=== PATIENT | female | born 1955 | race Hispanic/Latino ===

== ENCOUNTER 2020-10-06 18:47 | Inpatient (IN) | payer OTHER, SELFPAY ==
[~2020-10-06 18:47] MED LIST: Iopamidol-370 76% 500 ML 1 ML ONE
[2020-10-06] MEDS ORDERED: Ketorolac Tromethamine 30 MG/ML VIAL ONE (19:24)
[2020-10-06 20:21] LABS: Hemoglobin 12.8 g/dL (12.0-16.0); Mean Corpuscular HGB CONC 35.9 g/dL (32.0-36.0); Mean Corpuscular Hemoglobin 31.1 pg (27.0-31.0); Mean Corpuscular Volume 86.6 fL (78.0-98.0); Mean Platelet Volume 8.3 fL (7.4-10.4); Platelet Count 141 thou/uL (130-400); RBC Distribution Width 11.6 % (11.5-14.5); White Blood Cell (WBC) Count 2.4 thou/uL (4.8-10.8)
[2020-10-06 20:35] LABS: ALT (SGPT) 35 U/L (8-55); AST (SGOT) 45 U/L (5-34); Albumin 3.9 g/dL (3.4-4.8); Alkaline Phosphatase 116 U/L (40-110); Anion Gap 13 mmol/L (10-20); BUN (Urea Nitrogen) 8 mg/dL (9.8-20.1); Bilirubin, Total 0.3 mg/dL (0.2-1.2); Calc. Creatinine Clearance 0 mL/min (70-130); Calcium 8.6 mg/dL (7.8-10.44); Carbon Dioxide 24 mmol/L (23-31); Chloride 96 mmol/L (98-107); Globulin 3.5 g/dL (2.4-3.5); Glucose 152 mg/dL (80-115); Potassium 3.9 mmol/L (3.5-5.1); Protein, Total 7.4 g/dL (5.8-8.1); Sodium 129 mmol/L (136-145)
[2020-10-06 20:39] LABS: Band 6 % (5-11); Eosinophils 1 % (0-10); Lymphocytes 20 % (21-51); MDiff Complete? YES; Monocytes 6 % (0-10); Neutrophil 67 % (42-75); Platelet Morphology Comment Appears Adequate
[2020-10-06] MEDS ORDERED: Dexamethasone 10 MG/ML VIAL ONE (23:56)
[2020-10-07] MEDS ORDERED: Ondansetron PF 4 MG/2 ML Vial IVP PRN (01:45)
[2020-10-07] MEDS ORDERED: Ondansetron ODT 4 MG TAB SL PRN (01:45)
[2020-10-07] MEDS ORDERED: Sodium Chloride 0.9% (PF) 10 ML VIAL FS PRN (02:15)
[2020-10-07 06:16] LABS: #Lymphocytes 0.5 thou/uL (1.20-3.40); #Monocytes 0.1 thou/uL (0.11-0.59); #Neutrophils 1.2 thou/uL (1.40-6.50); %Eosinophils 0.2 % (0.0-10.0); %Lymphocytes 28.7 % (21.0-51.0); %Monocytes 4.5 % (0.0-10.0); %Neutrophils 66.5 % (42.0-75.0); Hemoglobin 12.9 g/dL (12.0-16.0); Mean Corpuscular HGB CONC 34.9 g/dL (32.0-36.0); Mean Corpuscular Hemoglobin 30.5 pg (27.0-31.0); Mean Corpuscular Volume 87.4 fL (78.0-98.0); Mean Platelet Volume 8.1 fL (7.4-10.4); Platelet Count 142 thou/uL (130-400); RBC Distribution Width 11.8 % (11.5-14.5); Red Blood Cell (RBC) Count 4.24 mill/uL (4.20-5.40); White Blood Cell (WBC) Count 1.8 thou/uL (4.8-10.8)
[2020-10-07 06:38] LABS: Anion Gap 11 mmol/L (10-20); BUN (Urea Nitrogen) 7 mg/dL (9.8-20.1); Calc. Creatinine Clearance 126 mL/min (70-130); Carbon Dioxide 26 mmol/L (23-31); Chloride 103 mmol/L (98-107); Glucose 191 mg/dL (80-115); Potassium 4.5 mmol/L (3.5-5.1); Sodium 135 mmol/L (136-145)
[2020-10-07] MEDS: Dexamethasone 4 mg/ml Vial SLOW IVP SCH (08:31)
[2020-10-07] MEDS: Zinc Sulfate 220 MG CAP PO SCH (08:32)
[2020-10-07] MEDS: Pantoprazole 40 MG VIAL IVP SCH (08:32)
[2020-10-07] MEDS: Ascorbic Acid 500 mg Chewable Tablet PO SCH (08:32)
[2020-10-07] MEDS: Cholecalciferol (Vitamin D3) 400 UNITS TAB PO SCH (08:32)
[2020-10-07] MEDS ORDERED: Succinylcholine 200 MG/10 ml SYRINGE FS ONE (13:09)
[2020-10-07] MEDS ORDERED: PROPOFOL 200 MG/20 ML VIAL ONE (13:09)
[2020-10-07] MEDS ORDERED: Rocuronium Bromide 10 MG/ML (10ML VIAL) ONE (13:09)
[2020-10-07] MEDS ORDERED: Azithromycin 500 MG in Sodium Chloride 0.9% 250 ML 250 ML IVPB SCH (16:09)
[2020-10-07] MEDS ORDERED: Ketorolac Tromethamine 30 MG/ML VIAL IVP PRN (16:21)
[2020-10-07] MEDS: cefTRIAXone\\ROCEPHIN 1 GM in Sodium Chloride 0.9% 100 ML IVPB SCH (16:23)
[2020-10-07] MEDS ORDERED: REMDESIVIR (EUA) 200 MG in Sodium Chloride 0.9% 250 ML 210 ML IV SCH (18:00)
[2020-10-07] MEDS: Acetaminophen 325 MG TAB PO PRN ×2 (18:01→21:10)
[2020-10-07] MEDS: Benzonatate 100 MG CAP PO PRN ×2 (18:01→21:10)
[2020-10-08] MEDS: Benzonatate 100 MG CAP PO PRN ×3 (00:50→14:54)
[2020-10-08] MEDS: Acetaminophen 325 MG TAB PO PRN ×2 (01:22→14:53)
[2020-10-08] MEDS: traMADol HCl 50 MG TAB PO PRN ×2 (05:00→20:44)
[2020-10-08] MEDS: Guaifenesin DM 100-10/5 ML UDCUP PO PRN ×2 (05:30→20:37)
[2020-10-08] MEDS: Zinc Sulfate 220 MG CAP PO SCH (07:50)
[2020-10-08] MEDS: Cholecalciferol (Vitamin D3) 400 UNITS TAB PO SCH (07:50)
[2020-10-08] MEDS: Dexamethasone 4 mg/ml Vial SLOW IVP SCH ×2 (07:50→08:49)
[2020-10-08] MEDS: Ascorbic Acid 500 mg Chewable Tablet PO SCH ×2 (07:50→20:36)
[2020-10-08] MEDS: Pantoprazole 40 MG VIAL IVP SCH ×2 (07:53→08:50)
[2020-10-08] MEDS: cefTRIAXone\\ROCEPHIN 1 GM in Sodium Chloride 0.9% 100 ML IVPB SCH (14:57)
[2020-10-08] MEDS: REMDESIVIR (EUA) 100 MG in Sodium Chloride 0.9% 250 ML 230 ML IV SCH (17:37)
[2020-10-08] MEDS: Colchicine 0.6 MG TAB PO SCH (20:36)
[2020-10-08] MEDS: Enoxaparin Sodium 40 MG/0.4 ML SYRINGE SC SCH (20:36)
[2020-10-09] MEDS: Benzonatate 100 MG CAP PO PRN ×2 (00:05→11:53)
[2020-10-09] MEDS: Acetaminophen 325 MG TAB PO PRN ×3 (00:05→16:00)
[2020-10-09] MEDS: Guaifenesin DM 100-10/5 ML UDCUP PO PRN ×2 (05:16→16:41)
[2020-10-09] MEDS: traMADol HCl 50 MG TAB PO PRN (05:16)
[2020-10-09 05:37] LABS: Mean Corpuscular HGB CONC 34.5 g/dL (32.0-36.0); Mean Corpuscular Hemoglobin 30.4 pg (27.0-31.0); Mean Corpuscular Volume 88.2 fL (78.0-98.0); Mean Platelet Volume 8.3 fL (7.4-10.4); Platelet Count 126 thou/uL (130-400); RBC Distribution Width 11.8 % (11.5-14.5); Red Blood Cell (RBC) Count 4.28 mill/uL (4.20-5.40); White Blood Cell (WBC) Count 4.5 thou/uL (4.8-10.8)
[2020-10-09 05:50] LABS: ALT (SGPT) 55 U/L (8-55); AST (SGOT) 55 U/L (5-34); Albumin 3.3 g/dL (3.4-4.8); Alkaline Phosphatase 103 U/L (40-110); Anion Gap 14 mmol/L (10-20); BUN (Urea Nitrogen) 12 mg/dL (9.8-20.1); Bilirubin, Total 0.3 mg/dL (0.2-1.2); CRP (Inflammatory) 13.96 mg/dL (= or < 0.5); Calc. Creatinine Clearance 148 mL/min (70-130); Calcium 8.4 mg/dL (7.8-10.44); Carbon Dioxide 23 mmol/L (23-31); Chloride 103 mmol/L (98-107); Globulin 3.2 g/dL (2.4-3.5); Glucose 141 mg/dL (80-115); Potassium 3.9 mmol/L (3.5-5.1); Protein, Total 6.5 g/dL (5.8-8.1); Sodium 136 mmol/L (136-145)
[2020-10-09 05:57] LABS: MDiff Complete? YES
[2020-10-09 05:58] LABS: Band 12 % (5-11); Lymphocytes 14 % (21-51); Monocytes 12 % (0-10); Neutrophil 62 % (42-75); Platelet Morphology Comment Appears Adequate
[2020-10-09] MEDS: Pantoprazole 40 MG VIAL IVP SCH ×3 (09:08→11:54)
[2020-10-09] MEDS: Dexamethasone 4 mg/ml Vial SLOW IVP SCH ×3 (09:16→20:42)
[2020-10-09] MEDS: Colchicine 0.6 MG TAB PO SCH ×2 (09:17→20:41)
[2020-10-09] MEDS: Zinc Sulfate 220 MG CAP PO SCH (09:18)
[2020-10-09] MEDS: Ascorbic Acid 500 mg Chewable Tablet PO SCH ×2 (09:18→20:42)
[2020-10-09] MEDS: Cholecalciferol (Vitamin D3) 400 UNITS TAB PO SCH (09:18)
[2020-10-09] MEDS: cefTRIAXone\\ROCEPHIN 1 GM in Sodium Chloride 0.9% 100 ML IVPB SCH (15:59)
[2020-10-09] MEDS ORDERED: Guaifenesin DM 100-10/5 ML UDCUP PO PRN (17:15)
[2020-10-09] MEDS: REMDESIVIR (EUA) 100 MG in Sodium Chloride 0.9% 250 ML 230 ML IV SCH ×3 (18:25→19:46)
[2020-10-09] MEDS ORDERED: Sodium Chloride 0.9% 1,000 ML IV SCH (18:45)
[2020-10-09] MEDS: Enoxaparin Sodium 40 MG/0.4 ML SYRINGE SC SCH (20:42)
[2020-10-10 05:25] LABS: #Lymphocytes 0.5 thou/uL (1.20-3.40); #Monocytes 0.1 thou/uL (0.11-0.59); %Eosinophils 0.3 % (0.0-10.0); %Lymphocytes 17.8 % (21.0-51.0); %Monocytes 4.3 % (0.0-10.0); %Neutrophils 77.7 % (42.0-75.0); Hemoglobin 12.7 g/dL (12.0-16.0); Mean Corpuscular HGB CONC 33.8 g/dL (32.0-36.0); Mean Corpuscular Hemoglobin 29.8 pg (27.0-31.0); Mean Corpuscular Volume 88.2 fL (78.0-98.0); Mean Platelet Volume 7.7 fL (7.4-10.4); Platelet Count 258 thou/uL (130-400); RBC Distribution Width 11.8 % (11.5-14.5); Red Blood Cell (RBC) Count 4.27 mill/uL (4.20-5.40); White Blood Cell (WBC) Count 2.5 thou/uL (4.8-10.8)
[2020-10-10 05:41] LABS: ALT (SGPT) 43 U/L (8-55); AST (SGOT) 42 U/L (5-34); Albumin 3.2 g/dL (3.4-4.8); Alkaline Phosphatase 107 U/L (40-110); Anion Gap 14 mmol/L (10-20); BUN (Urea Nitrogen) 12 mg/dL (9.8-20.1); Bilirubin, Total 0.3 mg/dL (0.2-1.2); Calc. Creatinine Clearance 141 mL/min (70-130); Calcium 8.5 mg/dL (7.8-10.44); Carbon Dioxide 24 mmol/L (23-31); Chloride 103 mmol/L (98-107); Globulin 3.4 g/dL (2.4-3.5); Glucose 196 mg/dL (80-115); Potassium 3.9 mmol/L (3.5-5.1); Protein, Total 6.6 g/dL (5.8-8.1); Sodium 137 mmol/L (136-145)
[2020-10-10] MEDS ORDERED: Ventilator Sedation Protocol 1 EACH FS PRN (09:30)
[2020-10-10] MEDS ORDERED: Electrolyte Replacement Protocol 1 EACH FS PRN (09:30)
[2020-10-10] MEDS ORDERED: Ivermectin 3 MG TAB PO SCH (09:30)
[2020-10-10] MEDS ORDERED: Propofol 1,000 MG/100 ML VIAL IV ONE (09:55)
[2020-10-10] MEDS: Propofol 1,000 MG/100 ML VIAL IV PRN ×4 (09:56→23:53)
[2020-10-10] MEDS ORDERED: DISCONTINUE PREVIOUS NARCOTIC PAIN MEDICATIONS AND BENZODIAZEPINES FS SCH (10:00)
[2020-10-10] MEDS ORDERED: Morphine 2 MG/ML VIAL SLOW IVP PRN (10:00)
[2020-10-10] MEDS ORDERED: Fentanyl BOLUS 250 ML IVPB PRN (10:00)
[2020-10-10] MEDS ORDERED: Propofol BOLUS 1,000 MG/100 ML VIAL IV PRN (10:00)
[2020-10-10] MEDS: Thiamine HCl 200 MG/2 ML VIAL SLOW IVP SCH (11:53)
[2020-10-10] MEDS: Colchicine 0.6 MG TAB PO SCH ×2 (11:54→20:51)
[2020-10-10] MEDS: Ascorbic Acid 500 mg Chewable Tablet PO SCH ×2 (11:55→20:50)
[2020-10-10] MEDS: Cholecalciferol (Vitamin D3) 400 UNITS TAB PO SCH (11:55)
[2020-10-10] MEDS: Zinc Sulfate 220 MG CAP PO SCH (11:55)
[2020-10-10] MEDS: Sodium Chloride 0.9% 1,000 ML IV SCH ×2 (11:56→22:29)
[2020-10-10] MEDS: Dexamethasone 4 mg/ml Vial SLOW IVP SCH (11:57)
[2020-10-10] MEDS: Lorazepam 2 MG/ML VIAL SLOW IVP PRN ×2 (13:00→13:41)
[2020-10-10] MEDS ORDERED: Fentanyl CADD 100 ML ONE ×2 (13:00→22:55)
[2020-10-10 13:26] LABS: Actual Bicarbonate (HCO3a) 21.8 mEq/L (22-28); CO2 Tension 38.3 mmHg (35.0-45.0); Calcium, Ionized (arterial) 1.16 mmol/L (1.12-1.30); Carboxyhemoglobin (COHb) 0.4 gm% (0.0-3.0); Hemoglobin (Hb) 13.6 g/dL (12.0-16.0); O2 Tension (PaO2), arterial 61.7 mmHg (> 80.0); Potassium - ABG Lab 3.64 mmol/L (3.70-5.30); pH, Arterial 7.37 (7.35-7.45)
[2020-10-10] MEDS ORDERED: Succinylcholine Chloride 200 MG/10 ML VIAL IV SCH (14:00)
[2020-10-10] MEDS ORDERED: Rocuronium Bromide 50 MG/5 ML VIAL IVP SCH (14:00)
[2020-10-10] MEDS ORDERED: PROPOFOL 200 MG/20 ML VIAL IV SCH (14:00)
[2020-10-10 14:56] LABS: ALV-art Gradient 603.425 mmHg (0-20); Puncture Site LRA
[2020-10-10] MEDS: cefTRIAXone\\ROCEPHIN 1 GM in Sodium Chloride 0.9% 100 ML IVPB SCH (15:49)
[2020-10-10] MEDS: REMDESIVIR (EUA) 100 MG in Sodium Chloride 0.9% 250 ML 230 ML IV SCH (20:50)
[2020-10-10] MEDS: Enoxaparin Sodium 40 MG/0.4 ML SYRINGE SC SCH (20:51)
[2020-10-10] MEDS: Melatonin 3 MG TAB PER TUBE SCH (20:51)
[2020-10-10] MEDS: Fentanyl CADD 100 ML IV SCH (23:01)
[2020-10-10] MEDS: Vecuronium 10 MG VIAL IVP PRN (23:32)
[2020-10-11] MEDS: Propofol 1,000 MG/100 ML VIAL IV PRN ×4 (04:08→20:37)
[2020-10-11 04:44] LABS: #Lymphocytes 0.8 thou/uL (1.20-3.40); #Monocytes 0.3 thou/uL (0.11-0.59); #Neutrophils 3.3 thou/uL (1.40-6.50); %Eosinophils 0.5 % (0.0-10.0); %Lymphocytes 17.4 % (21.0-51.0); %Monocytes 7.6 % (0.0-10.0); %Neutrophils 74.5 % (42.0-75.0); Hemoglobin 11.8 g/dL (12.0-16.0); Mean Corpuscular HGB CONC 34.5 g/dL (32.0-36.0); Mean Corpuscular Hemoglobin 30.3 pg (27.0-31.0); Mean Corpuscular Volume 87.9 fL (78.0-98.0); Mean Platelet Volume 7.6 fL (7.4-10.4); Platelet Count 279 thou/uL (130-400); RBC Distribution Width 11.9 % (11.5-14.5); White Blood Cell (WBC) Count 4.4 thou/uL (4.8-10.8)
[2020-10-11 04:54] LABS: Anion Gap 12 mmol/L (10-20); BUN (Urea Nitrogen) 14 mg/dL (9.8-20.1); CRP (Inflammatory) 5.58 mg/dL (= or < 0.5); Calc. Creatinine Clearance 136 mL/min (70-130); Calcium 7.9 mg/dL (7.8-10.44); Carbon Dioxide 21 mmol/L (23-31); Chloride 109 mmol/L (98-107); Glucose 180 mg/dL (80-115); Potassium 3.8 mmol/L (3.5-5.1); Sodium 138 mmol/L (136-145)
[2020-10-11 07:44] LABS: Actual Bicarbonate (HCO3a) 19.8 mEq/L (22-28); Base Excess (BEa) -2.7 mEq/L (-2.0 to +3.0); CO2 Tension 27.4 mmHg (35.0-45.0); Calcium, Ionized (arterial) 1.13 mmol/L (1.12-1.30); Carboxyhemoglobin (COHb) 0.3 gm% (0.0-3.0); Hemoglobin (Hb) 11.6 g/dL (12.0-16.0); O2 Tension (PaO2), arterial 63.8 mmHg (> 80.0); Potassium - ABG Lab 3.62 mmol/L (3.70-5.30); pH, Arterial 7.48 (7.35-7.45)
[2020-10-11 07:59] LABS: Puncture Site LRA
[2020-10-11] MEDS: Enoxaparin Sodium 40 MG/0.4 ML SYRINGE SC SCH ×2 (09:06→20:37)
[2020-10-11] MEDS: methylPREDNISolone Sod Succ/PF 100 MG in Sodium Chloride 0.9% 250 ML 250 ML IVPB SCH (09:06)
[2020-10-11] MEDS: Colchicine 0.6 MG TAB PO SCH ×2 (09:07→20:37)
[2020-10-11] MEDS: Zinc Sulfate 220 MG CAP PO SCH (09:07)
[2020-10-11] MEDS: Cholecalciferol (Vitamin D3) 400 UNITS TAB PO SCH (09:07)
[2020-10-11] MEDS: Ivermectin 3 MG TAB PO SCH (09:09)
[2020-10-11] MEDS: Fentanyl CADD 100 ML IV SCH (10:02)
[2020-10-11] MEDS: Thiamine HCl 200 MG/2 ML VIAL SLOW IVP SCH (11:03)
[2020-10-11] MEDS: Ascorbic Acid 500 mg Chewable Tablet PO SCH ×2 (12:16→20:36)
[2020-10-11] MEDS: Vecuronium 10 MG VIAL IVP PRN ×3 (12:45→20:37)
[2020-10-11] MEDS: cefTRIAXone\\ROCEPHIN 1 GM in Sodium Chloride 0.9% 100 ML IVPB SCH (16:06)
[2020-10-11] MEDS: Sodium Chloride 0.9% 1,000 ML IV SCH (16:07)
[2020-10-11] MEDS: Lorazepam 2 MG/ML VIAL SLOW IVP PRN (16:17)
[2020-10-11] MEDS: REMDESIVIR (EUA) 100 MG in Sodium Chloride 0.9% 250 ML 230 ML IV SCH (20:36)
[2020-10-11] MEDS: Melatonin 3 MG TAB PER TUBE SCH (20:36)
[2020-10-12] MEDS: Vecuronium 10 MG VIAL IVP PRN ×5 (01:19→20:32)
[2020-10-12] MEDS: Propofol 1,000 MG/100 ML VIAL IV PRN ×2 (03:11→08:05)
[2020-10-12 05:18] LABS: Hemoglobin 12.4 g/dL (12.0-16.0); Lymphocytes 20 % (21-51); MDiff Complete? YES; Mean Corpuscular HGB CONC 35.5 g/dL (32.0-36.0); Mean Corpuscular Hemoglobin 31.5 pg (27.0-31.0); Mean Corpuscular Volume 88.8 fL (78.0-98.0); Mean Platelet Volume 7.6 fL (7.4-10.4); Neutrophil 80 % (42-75); Nucleated RBC 1 % (0); Platelet Count 263 thou/uL (130-400); Platelet Morphology Comment Appears Adequate; RBC Distribution Width 11.9 % (11.5-14.5); RBC Morphology Normal; Red Blood Cell (RBC) Count 3.94 mill/uL (4.20-5.40); White Blood Cell (WBC) Count 3.9 thou/uL (4.8-10.8)
[2020-10-12 05:20] LABS: Anion Gap 13 mmol/L (10-20); BUN (Urea Nitrogen) 16 mg/dL (9.8-20.1); CRP (Inflammatory) 3.12 mg/dL (= or < 0.5); Calc. Creatinine Clearance 145 mL/min (70-130); Carbon Dioxide 21 mmol/L (23-31); Chloride 109 mmol/L (98-107); Glucose 184 mg/dL (80-115); Potassium 4.8 mmol/L (3.5-5.1); Sodium 138 mmol/L (136-145)
[2020-10-12] MEDS ORDERED: Fentanyl CADD 100 ML ONE ×2 (05:55→20:16)
[2020-10-12] MEDS: Fentanyl CADD 100 ML IV SCH (05:58)
[2020-10-12] MEDS: Sodium Chloride 0.9% 1,000 ML IV SCH ×2 (06:01→15:58)
[2020-10-12 07:40] LABS: Actual Bicarbonate (HCO3a) 21.8 mEq/L (22-28); Base Excess (BEa) -3.8 mEq/L (-2.0 to +3.0); CO2 Tension 41.4 mmHg (35.0-45.0); Carboxyhemoglobin (COHb) 0.3 gm% (0.0-3.0); Hemoglobin (Hb) 13.2 g/dL (12.0-16.0); pH, Arterial 7.34 (7.35-7.45)
[2020-10-12 07:42] LABS: O2 Tension (PaO2), arterial 46.1 mmHg (> 80.0); Puncture Site LRA
[2020-10-12] MEDS: Ivermectin 3 MG TAB PO SCH (08:04)
[2020-10-12] MEDS: Cholecalciferol (Vitamin D3) 400 UNITS TAB PO SCH (08:04)
[2020-10-12] MEDS: Colchicine 0.6 MG TAB PO SCH ×2 (08:05→20:30)
[2020-10-12] MEDS: Thiamine HCl 200 MG/2 ML VIAL SLOW IVP SCH (08:05)
[2020-10-12] MEDS: Zinc Sulfate 220 MG CAP PO SCH (08:05)
[2020-10-12] MEDS: Enoxaparin Sodium 40 MG/0.4 ML SYRINGE SC SCH ×2 (08:05→20:30)
[2020-10-12] MEDS: Ascorbic Acid 500 mg Chewable Tablet PO SCH ×2 (08:05→20:30)
[2020-10-12] MEDS: methylPREDNISolone Sod Succ/PF 100 MG in Sodium Chloride 0.9% 250 ML 250 ML IVPB SCH (08:08)
[2020-10-12] MEDS: Lorazepam 2 MG/ML VIAL SLOW IVP PRN ×3 (14:41→20:32)
[2020-10-12] MEDS: cefTRIAXone\\ROCEPHIN 1 GM in Sodium Chloride 0.9% 100 ML IVPB SCH (15:58)
[2020-10-12] MEDS: Melatonin 3 MG TAB PER TUBE SCH (20:30)
[2020-10-13] MEDS: Lorazepam 2 MG/ML VIAL SLOW IVP PRN ×4 (02:11→15:58)
[2020-10-13] MEDS: Vecuronium 10 MG VIAL IVP PRN ×5 (02:11→15:58)
[2020-10-13 04:58] LABS: #Lymphocytes 0.4 thou/uL (1.20-3.40); #Monocytes 0.3 thou/uL (0.11-0.59); %Basophils 0.1 % (0.0-1.0); %Eosinophils 0.2 % (0.0-10.0); %Lymphocytes 6.5 % (21.0-51.0); %Monocytes 4.2 % (0.0-10.0); %Neutrophils 88.9 % (42.0-75.0); Hemoglobin 12.7 g/dL (12.0-16.0); Mean Corpuscular HGB CONC 34.2 g/dL (32.0-36.0); Mean Corpuscular Volume 87.9 fL (78.0-98.0); Platelet Count 326 thou/uL (130-400); RBC Distribution Width 11.9 % (11.5-14.5); Red Blood Cell (RBC) Count 4.22 mill/uL (4.20-5.40); White Blood Cell (WBC) Count 6.8 thou/uL (4.8-10.8)
[2020-10-13 05:18] LABS: Anion Gap 10 mmol/L (10-20); BUN (Urea Nitrogen) 18 mg/dL (9.8-20.1); CRP (Inflammatory) 1.57 mg/dL (= or < 0.5); Calc. Creatinine Clearance 148 mL/min (70-130); Calcium 7.8 mg/dL (7.8-10.44); Carbon Dioxide 23 mmol/L (23-31); Chloride 106 mmol/L (98-107); Glucose 216 mg/dL (80-115); Potassium 4.1 mmol/L (3.5-5.1); Sodium 135 mmol/L (136-145)
[2020-10-13] MEDS ORDERED: Sterile Water 10 ML ONE (07:32)
[2020-10-13] MEDS: Sodium Chloride 0.9% 1,000 ML IV SCH (07:34)
[2020-10-13] MEDS: methylPREDNISolone Sod Succ/PF 100 MG in Sodium Chloride 0.9% 250 ML 250 ML IVPB SCH (07:34)
[2020-10-13] MEDS: Zinc Sulfate 220 MG CAP PO SCH (07:50)
[2020-10-13] MEDS: Ascorbic Acid 500 mg Chewable Tablet PO SCH ×2 (07:50→20:06)
[2020-10-13] MEDS: Cholecalciferol (Vitamin D3) 400 UNITS TAB PO SCH (07:51)
[2020-10-13] MEDS: Enoxaparin Sodium 40 MG/0.4 ML SYRINGE SC SCH ×2 (07:51→20:06)
[2020-10-13 07:52] LABS: Actual Bicarbonate (HCO3a) 19.6 mEq/L (22-28); Base Excess (BEa) -5.2 mEq/L (-2.0 to +3.0); CO2 Tension 35.6 mmHg (35.0-45.0); Calcium, Ionized (arterial) 1.15 mmol/L (1.12-1.30); Carboxyhemoglobin (COHb) 0.3 gm% (0.0-3.0); Hemoglobin (Hb) 13.3 g/dL (12.0-16.0); O2 Tension (PaO2), arterial 84.4 mmHg (> 80.0); Potassium - ABG Lab 4.21 mmol/L (3.70-5.30); pH, Arterial 7.36 (7.35-7.45)
[2020-10-13 07:53] LABS: Puncture Site RRA
[2020-10-13] MEDS: Colchicine 0.6 MG TAB PO SCH ×2 (07:56→20:06)
[2020-10-13] MEDS: Ivermectin 3 MG TAB PO SCH (09:38)
[2020-10-13] MEDS: Thiamine HCl 200 MG/2 ML VIAL SLOW IVP SCH (09:38)
[2020-10-13] MEDS ORDERED: Fentanyl CADD 100 ML ONE (13:56)
[2020-10-13] MEDS: cefTRIAXone\\ROCEPHIN 1 GM in Sodium Chloride 0.9% 100 ML IVPB SCH (15:22)
[2020-10-13] MEDS: Melatonin 3 MG TAB PER TUBE SCH (20:05)
[2020-10-14] MEDS: Sodium Chloride 0.9% 1,000 ML IV SCH (02:02)
[2020-10-14 04:41] LABS: #Lymphocytes 0.5 thou/uL (1.20-3.40); #Monocytes 0.4 thou/uL (0.11-0.59); #Neutrophils 7.7 thou/uL (1.40-6.50); %Basophils 0.1 % (0.0-1.0); %Eosinophils 0.2 % (0.0-10.0); %Lymphocytes 6.1 % (21.0-51.0); %Monocytes 4.8 % (0.0-10.0); %Neutrophils 88.8 % (42.0-75.0); Hemoglobin 12.6 g/dL (12.0-16.0); Mean Corpuscular Hemoglobin 29.6 pg (27.0-31.0); Mean Corpuscular Volume 87.1 fL (78.0-98.0); Mean Platelet Volume 7.6 fL (7.4-10.4); Platelet Count 372 thou/uL (130-400); Red Blood Cell (RBC) Count 4.24 mill/uL (4.20-5.40); White Blood Cell (WBC) Count 8.7 thou/uL (4.8-10.8)
[2020-10-14 05:07] LABS: Anion Gap 11 mmol/L (10-20); BUN (Urea Nitrogen) 18 mg/dL (9.8-20.1); CRP (Inflammatory) 0.79 mg/dL (= or < 0.5); Calc. Creatinine Clearance 142 mL/min (70-130); Calcium 7.9 mg/dL (7.8-10.44); Carbon Dioxide 24 mmol/L (23-31); Chloride 103 mmol/L (98-107); Glucose 206 mg/dL (80-115); Potassium 4.3 mmol/L (3.5-5.1); Sodium 134 mmol/L (136-145)
[2020-10-14] MEDS ORDERED: Fentanyl CADD 100 ML ONE ×3 (06:29→20:41)
[2020-10-14] MEDS: Fentanyl CADD 100 ML IV SCH ×2 (06:32→20:50)
[2020-10-14] MEDS: methylPREDNISolone Sod Succ/PF 100 MG in Sodium Chloride 0.9% 250 ML 250 ML IVPB SCH (06:34)
[2020-10-14 07:31] LABS: Base Excess (BEa) -2.5 mEq/L (-2.0 to +3.0); CO2 Tension 32.4 mmHg (35.0-45.0); Carboxyhemoglobin (COHb) 0.1 gm% (0.0-3.0); Hemoglobin (Hb) 13.4 g/dL (12.0-16.0); O2 Tension (PaO2), arterial 79.6 mmHg (> 80.0); Potassium - ABG Lab 4.13 mmol/L (3.70-5.30); pH, Arterial 7.43 (7.35-7.45)
[2020-10-14 07:41] LABS: Puncture Site LRA
[2020-10-14] MEDS: Colchicine 0.6 MG TAB PO SCH (08:58)
[2020-10-14] MEDS: Cholecalciferol (Vitamin D3) 400 UNITS TAB PO SCH (08:58)
[2020-10-14] MEDS: Zinc Sulfate 220 MG CAP PO SCH (08:59)
[2020-10-14] MEDS: Thiamine HCl 200 MG/2 ML VIAL SLOW IVP SCH (08:59)
[2020-10-14] MEDS: Ascorbic Acid 500 mg Chewable Tablet PO SCH ×2 (08:59→20:12)
[2020-10-14] MEDS ORDERED: Ivermectin 3 MG TAB PO SCH (09:00)
[2020-10-14] MEDS: Enoxaparin Sodium 40 MG/0.4 ML SYRINGE SC SCH ×2 (09:02→20:12)
[2020-10-14] MEDS: Lorazepam 2 MG/ML VIAL SLOW IVP PRN ×2 (09:04→20:13)
[2020-10-14] MEDS ORDERED: Loperamide HCl 2 MG CAP PO PRN (16:54)
[2020-10-14] MEDS: cefTRIAXone\\ROCEPHIN 1 GM in Sodium Chloride 0.9% 100 ML IVPB SCH (16:56)
[2020-10-14] MEDS ORDERED: Loperamide HCl 2 MG CAP PO SCH (17:00)
[2020-10-14] MEDS ORDERED: Metamucil PACK PO SCH (17:00)
[2020-10-14] MEDS ORDERED: Dextrose 5% in Water 1,000 ML IV PRN (19:17)
[2020-10-14] MEDS ORDERED: HumaLOG 300 UNITS/3 ML VIAL SC PRN (19:17)
[2020-10-14] MEDS ORDERED: Dextrose 50% Abboject 50 ML SYRINGE SLOW IVP PRN (19:17)
[2020-10-14] MEDS: Melatonin 3 MG TAB PER TUBE SCH (20:13)
[2020-10-15] MEDS: Colchicine 0.6 MG TAB PO SCH ×3 (00:59→21:56)
[2020-10-15] MEDS: methylPREDNISolone Sod Succ/PF 100 MG in Sodium Chloride 0.9% 250 ML 250 ML IVPB SCH (00:59)
[2020-10-15] MEDS: HumaLOG 300 UNITS/3 ML VIAL SC PRN ×4 (03:38→21:42)
[2020-10-15 06:09] LABS: #Basophils 0.1 thou/uL (0.0-0.2); #Lymphocytes 0.6 thou/uL (1.20-3.40); #Monocytes 0.5 thou/uL (0.11-0.59); #Neutrophils 10.3 thou/uL (1.40-6.50); %Basophils 0.8 % (0.0-1.0); %Lymphocytes 5.3 % (21.0-51.0); Hemoglobin 13.3 g/dL (12.0-16.0); Mean Corpuscular HGB CONC 35.1 g/dL (32.0-36.0); Mean Corpuscular Hemoglobin 30.5 pg (27.0-31.0); Mean Corpuscular Volume 86.9 fL (78.0-98.0); Mean Platelet Volume 7.2 fL (7.4-10.4); Platelet Count 351 thou/uL (130-400); RBC Distribution Width 12.2 % (11.5-14.5); Red Blood Cell (RBC) Count 4.34 mill/uL (4.20-5.40); White Blood Cell (WBC) Count 11.4 thou/uL (4.8-10.8)
[2020-10-15 06:40] LABS: Anion Gap 15 mmol/L (10-20); BUN (Urea Nitrogen) 19 mg/dL (9.8-20.1); CRP (Inflammatory) Less than 0.50 mg/dL (= or < 0.5); Calc. Creatinine Clearance 151 mL/min (70-130); Calcium 8.4 mg/dL (7.8-10.44); Carbon Dioxide 22 mmol/L (23-31); Chloride 101 mmol/L (98-107); Glucose 222 mg/dL (80-115); Potassium 4.3 mmol/L (3.5-5.1); Sodium 134 mmol/L (136-145)
[2020-10-15 07:09] LABS: Actual Bicarbonate (HCO3a) 25.6 mEq/L (22-28); Base Excess (BEa) 2.8 mEq/L (-2.0 to +3.0); CO2 Tension 33.9 mmHg (35.0-45.0); Calcium, Ionized (arterial) 1.14 mmol/L (1.12-1.30); Carboxyhemoglobin (COHb) 0.5 gm% (0.0-3.0); Hemoglobin (Hb) 13.6 g/dL (12.0-16.0); O2 Tension (PaO2), arterial 61.5 mmHg (> 80.0)
[2020-10-15 07:10] LABS: Puncture Site RRA
[2020-10-15 07:11] LABS: ALV-art Gradient 145.675 mmHg (0-20)
[2020-10-15] MEDS: Enoxaparin Sodium 40 MG/0.4 ML SYRINGE SC SCH ×2 (07:57→21:49)
[2020-10-15] MEDS: Ascorbic Acid 500 mg Chewable Tablet PO SCH ×2 (07:57→21:49)
[2020-10-15] MEDS: Zinc Sulfate 220 MG CAP PO SCH (07:58)
[2020-10-15] MEDS: Cholecalciferol (Vitamin D3) 400 UNITS TAB PO SCH (07:59)
[2020-10-15] MEDS: Thiamine HCl 200 MG/2 ML VIAL SLOW IVP SCH (07:59)
[2020-10-15] MEDS: Metamucil PACK PO SCH (08:01)
[2020-10-15] MEDS: Lorazepam 2 MG/ML VIAL SLOW IVP PRN ×2 (11:57→13:35)
[2020-10-15] MEDS ORDERED: Fentanyl CADD 100 ML ONE (12:43)
[2020-10-15] MEDS ORDERED: cloNIDine 0.1 MG TAB PO PRN (18:41)
[2020-10-15] MEDS ORDERED: NPH, Human Insulin Isophane 300 UNIT/3 ML VIAL SC SCH (21:00)
[2020-10-15] MEDS: Melatonin 3 MG TAB PER TUBE SCH (21:49)
[2020-10-16] MEDS ORDERED: Fentanyl CADD 100 ML ONE ×2 (02:28→21:12)
[2020-10-16] MEDS: methylPREDNISolone Sod Succ/PF 100 MG in Sodium Chloride 0.9% 250 ML 250 ML IVPB SCH (03:23)
[2020-10-16] MEDS: HumaLOG 300 UNITS/3 ML VIAL SC PRN ×4 (05:05→21:06)
[2020-10-16 06:43] LABS: #Lymphocytes 0.9 thou/uL (1.20-3.40); #Monocytes 0.6 thou/uL (0.11-0.59); %Basophils 0.2 % (0.0-1.0); %Eosinophils 0.1 % (0.0-10.0); %Lymphocytes 6.2 % (21.0-51.0); %Monocytes 3.8 % (0.0-10.0); %Neutrophils 89.8 % (42.0-75.0); Hemoglobin 13.9 g/dL (12.0-16.0); Mean Corpuscular HGB CONC 33.9 g/dL (32.0-36.0); Mean Corpuscular Hemoglobin 29.6 pg (27.0-31.0); Mean Corpuscular Volume 87.2 fL (78.0-98.0); Mean Platelet Volume 7.6 fL (7.4-10.4); Platelet Count 396 thou/uL (130-400); RBC Distribution Width 12.4 % (11.5-14.5); White Blood Cell (WBC) Count 14.4 thou/uL (4.8-10.8)
[2020-10-16 06:56] LABS: Phosphorus 3.6 mg/dL (2.3-4.7)
[2020-10-16 06:59] LABS: Anion Gap 14 mmol/L (10-20); BUN (Urea Nitrogen) 19 mg/dL (9.8-20.1); CRP (Inflammatory) Less than 0.50 mg/dL (= or < 0.5); Calc. Creatinine Clearance 146 mL/min (70-130); Calcium 8.5 mg/dL (7.8-10.44); Carbon Dioxide 23 mmol/L (23-31); Chloride 98 mmol/L (98-107); Glucose 209 mg/dL (80-115); Magnesium 2.3 mg/dL (1.6-2.6); Potassium 4.3 mmol/L (3.5-5.1); Sodium 131 mmol/L (136-145)
[2020-10-16 07:33] LABS: Actual Bicarbonate (HCO3a) 25.6 mEq/L (22-28); Base Excess (BEa) 2.4 mEq/L (-2.0 to +3.0); CO2 Tension 35.5 mmHg (35.0-45.0); Calcium, Ionized (arterial) 1.12 mmol/L (1.12-1.30); Carboxyhemoglobin (COHb) 0.9 gm% (0.0-3.0); Hemoglobin (Hb) 14.8 g/dL (12.0-16.0); pH, Arterial 7.48 (7.35-7.45)
[2020-10-16 07:34] LABS: ALV-art Gradient 182.725 mmHg (0-20); O2 Tension (PaO2), arterial 58.1 mmHg (> 80.0); Puncture Site RBA
[2020-10-16] MEDS ORDERED: Furosemide 20 MG/2 ML VIAL SLOW IVP SCH (08:15)
[2020-10-16] MEDS: NPH, Human Insulin Isophane 300 UNIT/3 ML VIAL SC SCH ×2 (09:38→20:31)
[2020-10-16] MEDS: Zinc Sulfate 220 MG CAP PO SCH (09:41)
[2020-10-16] MEDS: Cholecalciferol (Vitamin D3) 400 UNITS TAB PO SCH (09:41)
[2020-10-16] MEDS: Colchicine 0.6 MG TAB PO SCH ×2 (09:41→20:31)
[2020-10-16] MEDS: Enoxaparin Sodium 40 MG/0.4 ML SYRINGE SC SCH ×2 (09:41→20:32)
[2020-10-16] MEDS: Ascorbic Acid 500 mg Chewable Tablet PO SCH ×2 (09:41→20:32)
[2020-10-16] MEDS: Metamucil PACK PO SCH (09:42)
[2020-10-16] MEDS: Thiamine HCl 200 MG/2 ML VIAL SLOW IVP SCH (09:45)
[2020-10-16] MEDS: Melatonin 3 MG TAB PER TUBE SCH (20:32)
[2020-10-16] MEDS: Fentanyl CADD 100 ML IV SCH (21:14)
[2020-10-17] MEDS: HumaLOG 300 UNITS/3 ML VIAL SC PRN (04:24)
[2020-10-17 06:36] LABS: #Lymphocytes 0.8 thou/uL (1.20-3.40); #Monocytes 0.4 thou/uL (0.11-0.59); #Neutrophils 13.7 thou/uL (1.40-6.50); %Lymphocytes 5.4 % (21.0-51.0); %Monocytes 2.7 % (0.0-10.0); %Neutrophils 91.8 % (42.0-75.0); Hemoglobin 14.6 g/dL (12.0-16.0); Mean Corpuscular HGB CONC 34.7 g/dL (32.0-36.0); Mean Corpuscular Hemoglobin 30.5 pg (27.0-31.0); Mean Corpuscular Volume 87.8 fL (78.0-98.0); Mean Platelet Volume 7.6 fL (7.4-10.4); Platelet Count 376 thou/uL (130-400); RBC Distribution Width 12.6 % (11.5-14.5); White Blood Cell (WBC) Count 14.9 thou/uL (4.8-10.8)
[2020-10-17 06:55] LABS: Anion Gap 16 mmol/L (10-20); BUN (Urea Nitrogen) 23 mg/dL (9.8-20.1); CRP (Inflammatory) Less than 0.50 mg/dL (= or < 0.5); Calc. Creatinine Clearance 138 mL/min (70-130); Calcium 8.6 mg/dL (7.8-10.44); Carbon Dioxide 27 mmol/L (23-31); Chloride 94 mmol/L (98-107); Glucose 235 mg/dL (80-115); Potassium 4.2 mmol/L (3.5-5.1); Sodium 133 mmol/L (136-145)
[2020-10-17] MEDS ORDERED: DC Sedation Protocol FS ONE (07:22)
[2020-10-17] MEDS: Enoxaparin Sodium 40 MG/0.4 ML SYRINGE SC SCH ×2 (09:36→21:23)
[2020-10-17] MEDS: NPH, Human Insulin Isophane 300 UNIT/3 ML VIAL SC SCH ×2 (09:36→21:16)
[2020-10-17] MEDS: methylPREDNISolone Sod Succ/PF 100 MG in Sodium Chloride 0.9% 250 ML 250 ML IVPB SCH (09:36)
[2020-10-17] MEDS: Zinc Sulfate 220 MG CAP PO SCH (09:37)
[2020-10-17] MEDS: Ascorbic Acid 500 mg Chewable Tablet PO SCH ×2 (09:38→21:21)
[2020-10-17] MEDS: Colchicine 0.6 MG TAB PO SCH ×2 (09:38→21:21)
[2020-10-17] MEDS: Cholecalciferol (Vitamin D3) 400 UNITS TAB PO SCH (09:38)
[2020-10-17] MEDS: Metamucil PACK PO SCH (10:14)
[2020-10-17] MEDS: Thiamine HCl 200 MG/2 ML VIAL SLOW IVP SCH (10:15)
[2020-10-17] MEDS: Melatonin 3 MG TAB PER TUBE SCH (21:22)
[2020-10-18 04:04] LABS: #Lymphocytes 0.6 thou/uL (1.20-3.40); #Monocytes 0.6 thou/uL (0.11-0.59); #Neutrophils 9.8 thou/uL (1.40-6.50); %Basophils 0.1 % (0.0-1.0); %Eosinophils 0.1 % (0.0-10.0); %Lymphocytes 5.2 % (21.0-51.0); %Monocytes 5.8 % (0.0-10.0); %Neutrophils 88.8 % (42.0-75.0); Hemoglobin 15.1 g/dL (12.0-16.0); Mean Corpuscular HGB CONC 35.2 g/dL (32.0-36.0); Mean Platelet Volume 7.5 fL (7.4-10.4); Platelet Count 328 thou/uL (130-400); RBC Distribution Width 12.7 % (11.5-14.5); Red Blood Cell (RBC) Count 4.86 mill/uL (4.20-5.40); White Blood Cell (WBC) Count 11.1 thou/uL (4.8-10.8)
[2020-10-18 04:18] LABS: Anion Gap 14 mmol/L (10-20); BUN (Urea Nitrogen) 20 mg/dL (9.8-20.1); Calc. Creatinine Clearance 147 mL/min (70-130); Calcium 8.7 mg/dL (7.8-10.44); Carbon Dioxide 26 mmol/L (23-31); Chloride 97 mmol/L (98-107); Glucose 163 mg/dL (80-115); Potassium 4.4 mmol/L (3.5-5.1); Sodium 133 mmol/L (136-145)
[2020-10-18 04:47] LABS: Hemoglobin A1c 6.3 % (4.0-6.0)
[2020-10-18] MEDS: Cholecalciferol (Vitamin D3) 400 UNITS TAB PO SCH (08:18)
[2020-10-18] MEDS: Ascorbic Acid 500 mg Chewable Tablet PO SCH ×2 (08:18→21:34)
[2020-10-18] MEDS: Enoxaparin Sodium 40 MG/0.4 ML SYRINGE SC SCH ×2 (08:18→21:34)
[2020-10-18] MEDS: Colchicine 0.6 MG TAB PO SCH ×2 (08:19→21:59)
[2020-10-18] MEDS: Metamucil PACK PO SCH (08:19)
[2020-10-18] MEDS: NPH, Human Insulin Isophane 300 UNIT/3 ML VIAL SC SCH ×2 (08:19→21:35)
[2020-10-18] MEDS: Zinc Sulfate 220 MG CAP PO SCH (08:19)
[2020-10-18] MEDS: Thiamine HCl 200 MG/2 ML VIAL SLOW IVP SCH (09:00)
[2020-10-18] MEDS: methylPREDNISolone Sod Succ/PF 100 MG in Sodium Chloride 0.9% 250 ML 250 ML IVPB SCH (11:36)
[2020-10-18] MEDS: HumaLOG 300 UNITS/3 ML VIAL SC PRN ×2 (11:36→16:00)
[2020-10-18] MEDS: Melatonin 3 MG TAB PER TUBE SCH (21:35)
[2020-10-19 05:03] LABS: #Lymphocytes 0.4 thou/uL (1.20-3.40); #Monocytes 0.5 thou/uL (0.11-0.59); #Neutrophils 8.2 thou/uL (1.40-6.50); %Lymphocytes 4.5 % (21.0-51.0); %Monocytes 5.6 % (0.0-10.0); %Neutrophils 89.9 % (42.0-75.0); Hemoglobin 14.6 g/dL (12.0-16.0); Mean Corpuscular HGB CONC 32.9 g/dL (32.0-36.0); Mean Corpuscular Hemoglobin 29.2 pg (27.0-31.0); Mean Corpuscular Volume 88.7 fL (78.0-98.0); Mean Platelet Volume 7.6 fL (7.4-10.4); Platelet Count 282 thou/uL (130-400); RBC Distribution Width 13.1 % (11.5-14.5); Red Blood Cell (RBC) Count 4.99 mill/uL (4.20-5.40); White Blood Cell (WBC) Count 9.1 thou/uL (4.8-10.8)
[2020-10-19 05:44] LABS: Anion Gap 15 mmol/L (10-20); BUN (Urea Nitrogen) 24 mg/dL (9.8-20.1); Calc. Creatinine Clearance 135 mL/min (70-130); Calcium 8.9 mg/dL (7.8-10.44); Carbon Dioxide 26 mmol/L (23-31); Chloride 99 mmol/L (98-107); Glucose 143 mg/dL (80-115); Potassium 4.4 mmol/L (3.5-5.1); Sodium 136 mmol/L (136-145)
[2020-10-19] MEDS: Cholecalciferol (Vitamin D3) 400 UNITS TAB PO SCH (09:05)
[2020-10-19] MEDS: Ascorbic Acid 500 mg Chewable Tablet PO SCH ×2 (09:05→20:36)
[2020-10-19] MEDS: Colchicine 0.6 MG TAB PO SCH ×2 (09:06→20:36)
[2020-10-19] MEDS: Pantoprazole 40 MG GRANULES PACKET PO SCH (09:06)
[2020-10-19] MEDS: Enoxaparin Sodium 40 MG/0.4 ML SYRINGE SC SCH ×2 (09:06→21:15)
[2020-10-19] MEDS: NPH, Human Insulin Isophane 300 UNIT/3 ML VIAL SC SCH ×2 (09:06→20:42)
[2020-10-19] MEDS: Metamucil PACK PO SCH (09:06)
[2020-10-19] MEDS: Zinc Sulfate 220 MG CAP PO SCH (09:07)
[2020-10-19] MEDS: Thiamine HCl 200 MG/2 ML VIAL SLOW IVP SCH (09:07)
[2020-10-19] MEDS: methylPREDNISolone Sod Succ 40 MG VIAL IVP SCH ×3 (11:53→23:45)
[2020-10-19] MEDS: HumaLOG 300 UNITS/3 ML VIAL SC PRN ×2 (13:00→18:23)
[2020-10-19] MEDS: Melatonin 3 MG TAB PER TUBE SCH (20:37)
[2020-10-20 05:04] LABS: #Basophils 0.1 thou/uL (0.0-0.2); #Lymphocytes 0.4 thou/uL (1.20-3.40); #Monocytes 0.4 thou/uL (0.11-0.59); #Neutrophils 7.5 thou/uL (1.40-6.50); %Basophils 1.4 % (0.0-1.0); %Lymphocytes 4.3 % (21.0-51.0); %Monocytes 5.1 % (0.0-10.0); %Neutrophils 89.1 % (42.0-75.0); Hemoglobin 14.7 g/dL (12.0-16.0); Mean Corpuscular HGB CONC 33.5 g/dL (32.0-36.0); Mean Corpuscular Hemoglobin 29.7 pg (27.0-31.0); Mean Corpuscular Volume 88.8 fL (78.0-98.0); Mean Platelet Volume 7.9 fL (7.4-10.4); Platelet Count 245 thou/uL (130-400); RBC Distribution Width 12.9 % (11.5-14.5); Red Blood Cell (RBC) Count 4.94 mill/uL (4.20-5.40); White Blood Cell (WBC) Count 8.4 thou/uL (4.8-10.8)
[2020-10-20 05:30] LABS: Anion Gap 11 mmol/L (10-20); BUN (Urea Nitrogen) 24 mg/dL (9.8-20.1); Calc. Creatinine Clearance 126 mL/min (70-130); Calcium 8.4 mg/dL (7.8-10.44); Carbon Dioxide 28 mmol/L (23-31); Chloride 100 mmol/L (98-107); Glucose 97 mg/dL (80-115); Potassium 4.5 mmol/L (3.5-5.1); Sodium 134 mmol/L (136-145)
[2020-10-20] MEDS: methylPREDNISolone Sod Succ 40 MG VIAL IVP SCH ×3 (06:03→17:09)
[2020-10-20] MEDS: Ascorbic Acid 500 mg Chewable Tablet PO SCH ×2 (08:27→20:30)
[2020-10-20] MEDS: Pantoprazole 40 MG GRANULES PACKET PO SCH (08:28)
[2020-10-20] MEDS: Colchicine 0.6 MG TAB PO SCH ×2 (08:28→20:30)
[2020-10-20] MEDS: Cholecalciferol (Vitamin D3) 400 UNITS TAB PO SCH (08:28)
[2020-10-20] MEDS: NPH, Human Insulin Isophane 300 UNIT/3 ML VIAL SC SCH ×2 (08:28→21:09)
[2020-10-20] MEDS: Enoxaparin Sodium 40 MG/0.4 ML SYRINGE SC SCH ×2 (08:28→20:30)
[2020-10-20] MEDS: Metamucil PACK PO SCH (08:28)
[2020-10-20] MEDS: Thiamine HCl 200 MG/2 ML VIAL SLOW IVP SCH (08:29)
[2020-10-20] MEDS: Zinc Sulfate 220 MG CAP PO SCH (08:29)
[2020-10-20] MEDS: Thiamine 100 MG TAB PO SCH (09:07)
[2020-10-20] MEDS: HumaLOG 300 UNITS/3 ML VIAL SC PRN (17:08)
[2020-10-20] MEDS: Melatonin 3 MG TAB PER TUBE SCH (20:30)
[2020-10-21] MEDS: methylPREDNISolone Sod Succ 40 MG VIAL IVP SCH ×5 (00:03→23:24)
[2020-10-21] MEDS: Ascorbic Acid 500 mg Chewable Tablet PO SCH ×2 (08:30→20:27)
[2020-10-21] MEDS: Cholecalciferol (Vitamin D3) 400 UNITS TAB PO SCH (08:30)
[2020-10-21] MEDS: Zinc Sulfate 220 MG CAP PO SCH (08:31)
[2020-10-21] MEDS: Colchicine 0.6 MG TAB PO SCH ×2 (08:31→20:28)
[2020-10-21] MEDS: Pantoprazole 40 MG GRANULES PACKET PO SCH (08:31)
[2020-10-21] MEDS: NPH, Human Insulin Isophane 300 UNIT/3 ML VIAL SC SCH ×2 (08:32→20:28)
[2020-10-21] MEDS: Metamucil PACK PO SCH (08:32)
[2020-10-21] MEDS: Enoxaparin Sodium 40 MG/0.4 ML SYRINGE SC SCH ×2 (08:32→20:28)
[2020-10-21] MEDS: Thiamine 100 MG TAB PO SCH (09:40)
[2020-10-21] MEDS: HumaLOG 300 UNITS/3 ML VIAL SC PRN (11:36)
[2020-10-21] MEDS: Melatonin 3 MG TAB PER TUBE SCH (20:28)
[2020-10-22] MEDS: methylPREDNISolone Sod Succ 40 MG VIAL IVP SCH ×3 (06:05→23:39)
[2020-10-22 06:25] LABS: #Lymphocytes 0.7 thou/uL (1.20-3.40); #Monocytes 0.3 thou/uL (0.11-0.59); #Neutrophils 5.7 thou/uL (1.40-6.50); %Eosinophils 0.1 % (0.0-10.0); %Monocytes 4.3 % (0.0-10.0); %Neutrophils 85.5 % (42.0-75.0); Hemoglobin 15.3 g/dL (12.0-16.0); Mean Corpuscular HGB CONC 34.1 g/dL (32.0-36.0); Mean Corpuscular Hemoglobin 30.4 pg (27.0-31.0); Mean Corpuscular Volume 89.1 fL (78.0-98.0); Mean Platelet Volume 8.7 fL (7.4-10.4); Platelet Count 182 thou/uL (130-400); RBC Distribution Width 13.2 % (11.5-14.5); Red Blood Cell (RBC) Count 5.02 mill/uL (4.20-5.40); White Blood Cell (WBC) Count 6.7 thou/uL (4.8-10.8)
[2020-10-22 06:46] LABS: ALT (SGPT) 76 U/L (8-55); AST (SGOT) 36 U/L (5-34); Albumin 3.3 g/dL (3.4-4.8); Alkaline Phosphatase 96 U/L (40-110); Anion Gap 14 mmol/L (10-20); BUN (Urea Nitrogen) 25 mg/dL (9.8-20.1); Bilirubin, Total 0.7 mg/dL (0.2-1.2); Calc. Creatinine Clearance 134 mL/min (70-130); Calcium 8.4 mg/dL (7.8-10.44); Carbon Dioxide 20 mmol/L (23-31); Chloride 103 mmol/L (98-107); Globulin 2.4 g/dL (2.4-3.5); Glucose 124 mg/dL (80-115); Potassium 4.2 mmol/L (3.5-5.1); Protein, Total 5.7 g/dL (5.8-8.1); Sodium 133 mmol/L (136-145)
[2020-10-22] MEDS: Ascorbic Acid 500 mg Chewable Tablet PO SCH ×2 (08:31→20:18)
[2020-10-22] MEDS: Enoxaparin Sodium 40 MG/0.4 ML SYRINGE SC SCH ×2 (08:32→20:17)
[2020-10-22] MEDS: Colchicine 0.6 MG TAB PO SCH ×2 (08:32→20:19)
[2020-10-22] MEDS: NPH, Human Insulin Isophane 300 UNIT/3 ML VIAL SC SCH ×2 (08:32→20:21)
[2020-10-22] MEDS: Zinc Sulfate 220 MG CAP PO SCH (08:32)
[2020-10-22] MEDS: Cholecalciferol (Vitamin D3) 400 UNITS TAB PO SCH (08:32)
[2020-10-22] MEDS: Pantoprazole 40 MG GRANULES PACKET PO SCH (08:32)
[2020-10-22] MEDS: Thiamine 100 MG TAB PO SCH (08:32)
[2020-10-22] MEDS: Metamucil PACK PO SCH (08:33)
[2020-10-22] MEDS: HumaLOG 300 UNITS/3 ML VIAL SC PRN (12:24)
[2020-10-22] MEDS ORDERED: hydrALAZINE 25 MG TAB PO PRN (14:34)
[2020-10-22] MEDS ORDERED: Bacteriostatic Water 30 ML VIAL FS PRN (15:00)
[2020-10-22] MEDS: Melatonin 3 MG TAB PO SCH (20:17)
[2020-10-22] MEDS: Benzonatate 100 MG CAP PO PRN (20:19)
[2020-10-22] MEDS ORDERED: methylPREDNISolone Sod Succ 40 MG VIAL IVP SCH (21:00)
[2020-10-23] MEDS: Cholecalciferol (Vitamin D3) 400 UNITS TAB PO SCH (08:10)
[2020-10-23] MEDS: Zinc Sulfate 220 MG CAP PO SCH (08:11)
[2020-10-23] MEDS: Pantoprazole 40 MG GRANULES PACKET PO SCH (08:11)
[2020-10-23] MEDS: Ascorbic Acid 500 mg Chewable Tablet PO SCH ×2 (08:11→20:30)
[2020-10-23] MEDS: Colchicine 0.6 MG TAB PO SCH ×2 (08:12→20:31)
[2020-10-23] MEDS: Enoxaparin Sodium 40 MG/0.4 ML SYRINGE SC SCH ×2 (08:13→20:32)
[2020-10-23] MEDS: NPH, Human Insulin Isophane 300 UNIT/3 ML VIAL SC SCH ×2 (08:13→20:33)
[2020-10-23] MEDS: Metamucil PACK PO SCH (08:14)
[2020-10-23] MEDS ORDERED: Sodium Chloride 0.9% 1,000 ML IV SCH (09:00)
[2020-10-23] MEDS: Thiamine 100 MG TAB PO SCH (10:17)
[2020-10-23] MEDS: methylPREDNISolone Sod Succ 40 MG VIAL IVP SCH (11:33)
[2020-10-23] MEDS: HumaLOG 300 UNITS/3 ML VIAL SC PRN ×2 (12:50→18:14)
[2020-10-23] MEDS: Dexamethasone 4 MG TAB PO SCH (20:31)
[2020-10-23] MEDS: Melatonin 3 MG TAB PO SCH (20:33)
[2020-10-24] MEDS: Cholecalciferol (Vitamin D3) 400 UNITS TAB PO SCH (08:36)
[2020-10-24] MEDS: Pantoprazole 40 MG GRANULES PACKET PO SCH (08:36)
[2020-10-24] MEDS: Zinc Sulfate 220 MG CAP PO SCH (08:37)
[2020-10-24] MEDS: Dexamethasone 4 MG TAB PO SCH ×2 (08:37→21:02)
[2020-10-24] MEDS: Ascorbic Acid 500 mg Chewable Tablet PO SCH ×2 (08:38→21:01)
[2020-10-24] MEDS: Thiamine 100 MG TAB PO SCH (08:38)
[2020-10-24] MEDS: Colchicine 0.6 MG TAB PO SCH ×2 (08:38→21:00)
[2020-10-24] MEDS: Enoxaparin Sodium 40 MG/0.4 ML SYRINGE SC SCH ×2 (08:39→21:03)
[2020-10-24] MEDS: NPH, Human Insulin Isophane 300 UNIT/3 ML VIAL SC SCH ×2 (08:39→21:00)
[2020-10-24] MEDS: Metamucil PACK PO SCH (08:41)
[2020-10-24 15:40] VITALS: BMI 33.2
[2020-10-24] MEDS: Melatonin 3 MG TAB PO SCH (21:00)
[2020-10-25] MEDS: Ascorbic Acid 500 mg Chewable Tablet PO SCH ×2 (08:12→21:11)
[2020-10-25] MEDS: Cholecalciferol (Vitamin D3) 400 UNITS TAB PO SCH (08:12)
[2020-10-25] MEDS: Enoxaparin Sodium 40 MG/0.4 ML SYRINGE SC SCH ×2 (08:12→21:12)
[2020-10-25] MEDS: Zinc Sulfate 220 MG CAP PO SCH (08:13)
[2020-10-25] MEDS: Pantoprazole 40 MG GRANULES PACKET PO SCH (08:13)
[2020-10-25] MEDS: Colchicine 0.6 MG TAB PO SCH ×2 (08:13→21:12)
[2020-10-25] MEDS: Dexamethasone 4 MG TAB PO SCH ×2 (08:13→21:12)
[2020-10-25] MEDS: Metamucil PACK PO SCH (08:15)
[2020-10-25] MEDS: Thiamine 100 MG TAB PO SCH (08:15)
[2020-10-25] MEDS: NPH, Human Insulin Isophane 300 UNIT/3 ML VIAL SC SCH ×2 (08:16→21:09)
[2020-10-25] MEDS: HumaLOG 300 UNITS/3 ML VIAL SC PRN ×2 (11:38→17:03)
[2020-10-25] MEDS: Melatonin 3 MG TAB PO SCH (21:10)
[2020-10-26] MEDS: Acetaminophen 325 MG TAB PO PRN (02:39)
[2020-10-26] MEDS: HumaLOG 300 UNITS/3 ML VIAL SC PRN ×2 (05:30→11:56)
[2020-10-26 07:33] VITALS: TEMP 97.6
[2020-10-26] MEDS: Dexamethasone 4 MG TAB PO SCH (08:01)
[2020-10-26] MEDS: Cholecalciferol (Vitamin D3) 400 UNITS TAB PO SCH (08:01)
[2020-10-26] MEDS: Enoxaparin Sodium 40 MG/0.4 ML SYRINGE SC SCH (08:01)
[2020-10-26] MEDS: Ascorbic Acid 500 mg Chewable Tablet PO SCH (08:01)
[2020-10-26] MEDS: Pantoprazole 40 MG GRANULES PACKET PO SCH (08:02)
[2020-10-26] MEDS: Zinc Sulfate 220 MG CAP PO SCH (08:02)
[2020-10-26] MEDS: NPH, Human Insulin Isophane 300 UNIT/3 ML VIAL SC SCH (08:02)
[2020-10-26] MEDS: Metamucil PACK PO SCH (08:08)
[2020-10-26] MEDS: Thiamine 100 MG TAB PO SCH (08:09)
[2020-10-26] MEDS: Colchicine 0.6 MG TAB PO SCH (08:09)
[2020-10-26] MEDS ORDERED: Ondansetron ODT 4 MG TAB PO PRN (13:20)
[2020-10-26 17:49] VITALS: BP 111/81
== END 2020-10-26 17:15 | disposition home health service (06) | DRG 870 ==
LOC: ERS 18:47 → T4-B 10-07 00:10 → CCU 10-09 17:16 → T4-B 10-20 11:22
PROVIDERS: ADMIT Student in an Organized Health Care Education/Training Program; ATTEND Internal Medicine
PROC: XW033E5 Introduction of Remdesivir Anti-infective into Peripheral Vein, Percutaneous Approach, New Technology Group 5 (ICD-10-PCS; 2020-10-07)
PROC: 0BH17EZ Insertion of Endotracheal Airway into Trachea, Via Natural or Artificial Opening (ICD-10-PCS; principal; 2020-10-10)
PROC: 5A1955Z Respiratory Ventilation, Greater than 96 Consecutive Hours (ICD-10-PCS; 2020-10-10)
PROC: 05HC33Z Insertion of Infusion Device into Left Basilic Vein, Percutaneous Approach (ICD-10-PCS; 2020-10-19)
PROC: B54NZZA Ultrasonography of Left Upper Extremity Veins, Guidance (ICD-10-PCS; 2020-10-19)
DX: A41.89 Other specified sepsis (principal); U07.1 COVID-19; J96.01 Acute respiratory failure with hypoxia; J12.82 Pneumonia due to coronavirus disease 2019; E87.1 Hypo-osmolality and hyponatremia; F41.9 Anxiety disorder, unspecified; F32.9 Major depressive disorder, single episode, unspecified; R74.01 Elevation of levels of liver transaminase levels; D72.819 Decreased white blood cell count, unspecified; E66.9 Obesity, unspecified; R00.1 Bradycardia, unspecified; E11.65 Type 2 diabetes mellitus with hyperglycemia; T38.0X5A Adverse effect of glucocorticoids and synthetic analogues, initial encounter; R13.10 Dysphagia, unspecified; Z68.32 Body mass index [BMI] 32.0-32.9, adult
CPT/HCPCS: 36415; 36416; 36600; 71045; 71275; 80048; 80053; 82728; 82805; 83036; 83735; 84100; 84484; 85025; 85379; 85652; 86140; 93005; 94002; 94003; 96374; 96375; C9113; J0330; J0456; J0696; J1100; J1650; J1815; J1885; J1940; J2060; J2270; J2704; J2920; J2930; J3010; J3262; J3411; J3490; J7050; J8540; Q0162; Q9967

== ENCOUNTER 2020-10-28 20:59 | Inpatient (IN) | payer SELFPAY ==
[~2020-10-28 20:59] MED LIST changes: +Iopamidol 370 76% 100 ML VIAL ONE; -Iopamidol-370 76% 500 ML 1 ML ONE
[2020-10-28 22:20] LABS: #Basophils 0.1 thou/uL (0.0-0.2); #Lymphocytes 1.6 thou/uL (1.20-3.40); #Monocytes 0.5 thou/uL (0.11-0.59); #Neutrophils 6.6 thou/uL (1.40-6.50); %Basophils 0.9 % (0.0-1.0); %Eosinophils 0.4 % (0.0-10.0); %Lymphocytes 17.8 % (21.0-51.0); %Monocytes 5.5 % (0.0-10.0); %Neutrophils 75.4 % (42.0-75.0); Hemoglobin 15.4 g/dL (12.0-16.0); Mean Corpuscular Hemoglobin 31.2 pg (27.0-31.0); Mean Corpuscular Volume 89.2 fL (78.0-98.0); Platelet Count 129 thou/uL (130-400); RBC Distribution Width 13.8 % (11.5-14.5); Red Blood Cell (RBC) Count 4.93 mill/uL (4.20-5.40); White Blood Cell (WBC) Count 8.7 thou/uL (4.8-10.8)
[2020-10-28 22:28] LABS: PTT 22.9 sec (22.9-36.1); Prothrombin Time 13.5 sec (12.0-14.7)
[2020-10-28 22:40] LABS: ALT (SGPT) 118 U/L (8-55); AST (SGOT) 33 U/L (5-34); Albumin 3.6 g/dL (3.4-4.8); Alkaline Phosphatase 148 U/L (40-110); Anion Gap 16 mmol/L (10-20); BUN (Urea Nitrogen) 22 mg/dL (9.8-20.1); Bilirubin, Total 0.5 mg/dL (0.2-1.2); Calc. Creatinine Clearance 0 mL/min (70-130); Calcium 8.7 mg/dL (7.8-10.44); Carbon Dioxide 20 mmol/L (23-31); Chloride 105 mmol/L (98-107); Globulin 2.4 g/dL (2.4-3.5); Glucose 156 mg/dL (80-115); Lipase 101 U/L (8-78); Potassium 4.3 mmol/L (3.5-5.1); Sodium 137 mmol/L (136-145)
[2020-10-28 23:05] LABS: CKMB 8.6 ng/mL (0-6.6)
[2020-10-28] MEDS ORDERED: Dexamethasone 10 MG/ML VIAL ONE (23:44)
[2020-10-28] MEDS ORDERED: Sodium Chloride 0.9% 500 ML IV SCH (23:45)
[2020-10-28] MEDS ORDERED: Ondansetron PF 4 MG/2 ML Vial IVP PRN (23:56)
[2020-10-28] MEDS ORDERED: Acetaminophen 650 MG Suppository PR PRN (23:56)
[2020-10-28] MEDS ORDERED: Ondansetron ODT 4 MG TAB PO PRN (23:56)
[2020-10-28] MEDS ORDERED: Guaifenesin DM 100-10/5 ML UDCUP PO PRN (23:56)
[2020-10-29] MEDS ORDERED: Albuterol Sulfate 2.5 mg/3 ml Neb NEB PRN (00:08)
[2020-10-29] MEDS ORDERED: Benzonatate 100 MG CAP PO PRN (00:09)
[2020-10-29] MEDS ORDERED: Aspirin 325 mg Enteric Coated Tablet PO SCH (00:15)
[2020-10-29 01:17] LABS: Lactic Acid 1.8 mmol/L (0.5-2.2)
[2020-10-29 01:27] LABS: Troponin I 0.048 ng/mL (< 0.028)
[2020-10-29 01:28] VITALS: BMI 31.8
[2020-10-29 04:25] LABS: #Lymphocytes 0.9 thou/uL (1.20-3.40); #Monocytes 0.2 thou/uL (0.11-0.59); #Neutrophils 5.6 thou/uL (1.40-6.50); %Basophils 0.7 % (0.0-1.0); %Eosinophils 0.2 % (0.0-10.0); %Lymphocytes 13.6 % (21.0-51.0); %Monocytes 3.1 % (0.0-10.0); %Neutrophils 82.5 % (42.0-75.0); Hemoglobin 14.5 g/dL (12.0-16.0); Mean Corpuscular HGB CONC 35.6 g/dL (32.0-36.0); Mean Corpuscular Hemoglobin 31.8 pg (27.0-31.0); Mean Corpuscular Volume 89.3 fL (78.0-98.0); Mean Platelet Volume 8.8 fL (7.4-10.4); Platelet Count 113 thou/uL (130-400); RBC Distribution Width 13.8 % (11.5-14.5); Red Blood Cell (RBC) Count 4.57 mill/uL (4.20-5.40); White Blood Cell (WBC) Count 6.7 thou/uL (4.8-10.8)
[2020-10-29 04:35] LABS: Anion Gap 14 mmol/L (10-20); BUN (Urea Nitrogen) 20 mg/dL (9.8-20.1); CRP (Inflammatory) Less than 0.50 mg/dL (= or < 0.5); Calc. Creatinine Clearance 121 mL/min (70-130); Calcium 8.4 mg/dL (7.8-10.44); Carbon Dioxide 21 mmol/L (23-31); Chloride 107 mmol/L (98-107); Glucose 184 mg/dL (80-115); Lipase 79 U/L (8-78); Potassium 4.5 mmol/L (3.5-5.1); Sodium 137 mmol/L (136-145)
[2020-10-29] MEDS: Enoxaparin Sodium 40 MG/0.4 ML SYRINGE SC SCH (08:36)
[2020-10-29] MEDS: Dexamethasone 4 mg/ml Vial SLOW IVP SCH (08:36)
[2020-10-29] MEDS: Cholecalciferol 1,000 UNITS (25 MCG) TAB PO SCH (08:37)
[2020-10-29] MEDS: Acetaminophen 325 MG TAB PO PRN (08:37)
[2020-10-29] MEDS: Ascorbic Acid 500 mg Chewable Tablet PO SCH (08:37)
[2020-10-29] MEDS: Zinc Sulfate 220 MG CAP PO SCH (08:37)
[2020-10-29] MEDS ORDERED: Sodium Chloride 0.9% 500 ML IV SCH (10:45)
[2020-10-30] MEDS: Acetaminophen 325 MG TAB PO PRN ×2 (09:32→16:25)
[2020-10-30] MEDS: Enoxaparin Sodium 40 MG/0.4 ML SYRINGE SC SCH (09:32)
[2020-10-30] MEDS: Ascorbic Acid 500 mg Chewable Tablet PO SCH (09:33)
[2020-10-30] MEDS: Zinc Sulfate 220 MG CAP PO SCH (09:33)
[2020-10-30] MEDS: Cholecalciferol 1,000 UNITS (25 MCG) TAB PO SCH (09:34)
[2020-10-30] MEDS: Dexamethasone 4 mg/ml Vial SLOW IVP SCH (09:35)
[2020-10-31 04:30] LABS: Troponin I 0.017 ng/mL (< 0.028)
[2020-10-31] MEDS: Enoxaparin Sodium 40 MG/0.4 ML SYRINGE SC SCH (10:13)
[2020-10-31] MEDS: Dexamethasone 4 mg/ml Vial SLOW IVP SCH (10:13)
[2020-10-31] MEDS: Cholecalciferol 1,000 UNITS (25 MCG) TAB PO SCH (10:13)
[2020-10-31] MEDS: Ascorbic Acid 500 mg Chewable Tablet PO SCH (10:13)
[2020-10-31] MEDS: Zinc Sulfate 220 MG CAP PO SCH (10:14)
[2020-10-31 12:04] VITALS: TEMP 98
[2020-10-31 15:52] VITALS: BP 100/60
== END 2020-10-31 17:22 | disposition home or self-care (01) | DRG 177 ==
LOC: ERS 20:59 → 2NO 23:40
PROVIDERS: ADMIT Internal Medicine; ATTEND Internal Medicine
DX: U07.1 COVID-19 (principal); J96.01 Acute respiratory failure with hypoxia; J12.82 Pneumonia due to coronavirus disease 2019; I24.8 Other forms of acute ischemic heart disease; F41.9 Anxiety disorder, unspecified; F32.9 Major depressive disorder, single episode, unspecified; E66.9 Obesity, unspecified; Z79.899 Other long term (current) drug therapy
CPT/HCPCS: 36415; 71045; 71275; 80048; 80053; 82553; 82728; 83605; 83690; 83880; 84145; 84484; 85025; 85379; 85610; 85730; 86140; 93005; 93306; 94760; 96374; J1100; J1650; Q9967